=== PATIENT | male | born 1975 | race Caucasian/White ===

== ENCOUNTER 2018-08-27 02:36 | Emergency (ER) | payer SELFPAY ==
[~2018-08-27] VITALS: Ht 170.2 cm; Wt 86.2 kg
[2018-08-27 02:48] VITALS: BP_SYST 131
[2018-08-27 03:20] LABS: BILIRUBIN,URINE NEGATIVE (NEGATIVE); CLARITY/URINE SL HAZY (CLEAR); COLOR,URINE YELLOW (YELLOW); GLUCOSE,URINE NEGATIVE (NEGATIVE); KETONES,URINE NEGATIVE (NEGATIVE); LEUKOCYTE ESTERASE ,URINE 2+ (NEGATIVE); NITRITE, URINE NEGATIVE (NEGATIVE); PH,URINE 6.5 (5.0-8.0); PROTEIN URINE NEGATIVE (NEGATIVE); UROBILINOGEN,URINE 0.2 (0.2-1.0)
[2018-08-27 03:23] LABS: BLOOD, URINE TRACE (NEGATIVE)
[2018-08-27 03:27] LABS: BACTERIA,URINE MODERATE /HPF (None Seen); WBC,URINE 50-80 /HPF (0-3)
[2018-08-27] MEDS ORDERED: DOXYCYCLINE HYCLATE 100 MG CAPSULE PO ONE (05:45)
[2018-08-27] MEDS ORDERED: cefTRIAXone 1 GM VIAL IM ONE (05:45)
[2018-08-27 06:30] VITALS: BP_SYST 124
== END 2018-08-27 06:30 | disposition home or self-care (01) ==
LOC: SED 02:36
DX: N39.0 Urinary tract infection, site not specified (principal); A64 Unspecified sexually transmitted disease
CPT/HCPCS: 81000; 87086; 87491; 87591; 96372; 99283; J0696

== ENCOUNTER 2019-08-20 17:11 | Inpatient (IN) | payer MEDICAID ==
[~2019-08-20] VITALS: Ht 170.2 cm; Wt 95.3 kg
[2019-08-20 17:17] VITALS: BP_SYST 137
[2019-08-20 17:47] LABS: BASOPHILS # (AUTO) 0.1 K/uL (0.0-0.2); BASOPHILS % (AUTO) 0.7 % (0.0-2.0); EOSINOPHILS # (AUTO) 0.2 K/uL (0.0-0.4); EOSINOPHILS % (AUTO) 1.9 % (0.0-4.0); HEMATOCRIT 43.5 % (36-54); HEMOGLOBIN 14.7 g/dL (14.0-18.0); LYMPHOCYTES # (AUTO) 1.9 K/uL (1.0-5.5); LYMPHOCYTES % (AUTO) 23.9 % (20.5-51.5); MEAN CORPUSCULAR HEMOGLOBIN 30 pg (27-31); MEAN CORPUSCULAR HGB CONC 34 % (32-36); MEAN CORPUSCULAR VOLUME 90 fL (79.0-98.0); MONOCYTES # (AUTO) 0.5 K/uL (0.0-1.0); MONOCYTES % (AUTO) 5.6 % (1.7-9.3); NEUTROPHILS # (AUTO) 5.5 K/uL (1.8-7.7); NEUTROPHILS % (AUTO) 67.9 % (40.0-70.0); PLATELET COUNT (AUTO) 291 K/uL (130-430); RED BLOOD CELL COUNT(AUTO) 4.84 MIL/uL (4.2-6.2)
[2019-08-20 17:57] LABS: CALCIUM 8.5 mg/dL (8.4-11.0); CREATININE 1.25 mg/dL (0.55-1.30); POTASSIUM 4.2 mmol/L (3.5-5.1)
[2019-08-20 18:01] LABS: ALBUMIN 3.7 g/dL (3.4-4.8); TOTAL BILIRUBIN 0.2 mg/dL (0.0-1.0)
[2019-08-20] MEDS ORDERED: HYDROcodone/ACETAMIN 7.5-325 MG TAB PO ONE (19:00)
[2019-08-20] MEDS ORDERED: IBUPROFEN 800 MG TABLET PO ONE (19:00)
[2019-08-20] MEDS ORDERED: fentaNYL CITRATE/PF 100 MCG/2 ML AMP IM ONE (20:30)
[2019-08-20] MEDS ORDERED: ONDANSETRON HCL 4 MG/2 ML VIAL IVP PRN (21:45)
[2019-08-20] MEDS ORDERED: HYDROcodone/ACETAMIN 5-325 MG TAB (NORCO/ VICODIN) PO PRN (21:45)
[2019-08-20] MEDS ORDERED: fentaNYL CITRATE/PF 100 MCG/2 ML AMP IVP ONE (21:45)
[2019-08-20] MEDS ORDERED: MORPHINE 2 MG/ML INJ. SYRINGE IVP PRN (21:45)
[2019-08-20] MEDS ORDERED: ACETAMINOPHEN 325 MG TABLET PO PRN (21:45)
[2019-08-20 22:14] LABS: PHOSPHORUS 3.3 mg/dL (2.7-4.5); THYROID STIMULATING HORMONE 0.95 uIu/mL (0.36-3.74)
[2019-08-20 23:20] VITALS: BP_SYST 120
[2019-08-21 07:22] LABS: BASOPHILS # (AUTO) 0.1 K/uL (0.0-0.2); BASOPHILS % (AUTO) 0.9 % (0.0-2.0); EOSINOPHILS # (AUTO) 0.3 K/uL (0.0-0.4); EOSINOPHILS % (AUTO) 4.1 % (0.0-4.0); HEMATOCRIT 40.8 % (36-54); LYMPHOCYTES # (AUTO) 2.3 K/uL (1.0-5.5); LYMPHOCYTES % (AUTO) 31.1 % (20.5-51.5); MEAN CORPUSCULAR HEMOGLOBIN 31 pg (27-31); MEAN CORPUSCULAR HGB CONC 34 % (32-36); MEAN CORPUSCULAR VOLUME 89 fL (79.0-98.0); MONOCYTES # (AUTO) 0.7 K/uL (0.0-1.0); MONOCYTES % (AUTO) 9.6 % (1.7-9.3); NEUTROPHILS % (AUTO) 54.3 % (40.0-70.0); PLATELET COUNT (AUTO) 280 K/uL (130-430); RED BLOOD CELL COUNT(AUTO) 4.58 MIL/uL (4.2-6.2); WHITE BLOOD COUNT (AUTO) 7.4 K/uL (4.8-10.8)
[2019-08-21 07:33] LABS: CALCIUM 8.3 mg/dL (8.4-11.0); CREATININE 1.35 mg/dL (0.55-1.30); POTASSIUM 3.7 mmol/L (3.5-5.1)
[2019-08-21 07:39] VITALS: BP_SYST 119
[2019-08-21] MEDS ORDERED: DOCUSATE SODIUM 100 MG CAPSULE PO SCH (09:00)
[2019-08-21 10:00] VITALS: BP_SYST 119; BP_SYST 123
[2019-08-21 11:23] VITALS: BP_SYST 123
== END 2019-08-21 12:20 | disposition home or self-care (01) | DRG 952 ==
LOC: SED 17:11 → SMU 20:50
PROVIDERS: ADMIT Student in an Organized Health Care Education/Training Program; ATTEND Student in an Organized Health Care Education/Training Program
PROC: 0WQ0XZZ Repair Head, External Approach (ICD-10-PCS; principal; 2019-08-21)
DX: S22.089A Unspecified fracture of T11-T12 vertebra, initial encounter for closed fracture (principal); S32.049A Unspecified fracture of fourth lumbar vertebra, initial encounter for closed fracture; S01.01XA Laceration without foreign body of scalp, initial encounter; S33.5XXA Sprain of ligaments of lumbar spine, initial encounter; E78.2 Mixed hyperlipidemia; S01.81XA Laceration without foreign body of other part of head, initial encounter; F15.10 Other stimulant abuse, uncomplicated; Z60.2 Problems related to living alone; W18.39XA Other fall on same level, initial encounter; Y93.89 Activity, other specified; Y92.89 Other specified places as the place of occurrence of the external cause; Y99.8 Other external cause status; Z71.51 Drug abuse counseling and surveillance of drug abuser
CPT/HCPCS: 36415; 70450-TC; 71045; 72125-TC; 72128; 72131; 80048; 80053; 80061; 82150-TC; 83036; 83605; 83615-TC; 83690-TC; 83735-TC; 83880; 84100-TC; 84443-TC; 84484; 85025; 85610-TC; 85730-TC; 96374; 99285; J3010

== ENCOUNTER 2019-08-30 02:38 | Emergency (ER) | payer MEDICAID ==
[~2019-08-30] VITALS: Ht 170.2 cm; Wt 95.3 kg
[2019-08-30 02:44] VITALS: BP_SYST 121
--- NOTE | 2019-08-30 02:50 | NUR ---
Patient to ER bed 3 to gown for evaluation. Side rails up. Report given to Ghazal BRITO.
--- NOTE | 2019-08-30 02:52 | NUR ---
Patient ambulated with steady gait. Pt is here for suture removal to head. Site is dry, edges are well approximated, and intact. No other injuries/complaints per patient or noted.
--- NOTE | 2019-08-30 02:54 | NUR ---
ER Dr. Warner at bedside examining patient.
--- NOTE | 2019-08-30 03:42 | NUR ---
Patient given written and verbal discharge instructions and verbalizes understanding. ER MD discussed with patient the results and treatment provided. Patient in stable condition. ID arm band removed. NO Rx of given. Patient educated on pain management and to follow up with PMD. Pain Scale 0/10. Opportunity for questions provided and answered. Medication side effect fact sheet provided.
[2019-08-30 03:46] VITALS: BP_SYST 119
== END 2019-08-30 03:46 | disposition home or self-care (01) ==
LOC: SED 02:38
DX: Z48.02 Encounter for removal of sutures (principal)
CPT/HCPCS: 99283

== ENCOUNTER 2019-09-05 12:42 | Emergency (ER) | payer MEDICAID ==
[~2019-09-05] VITALS: Ht 162.6 cm; Wt 74.8 kg
[2019-09-05 13:20] VITALS: BP_SYST 158
--- NOTE | 2019-09-05 13:35 | NUR ---
p-t arrives from home fro a referral to Dr. Bassett. No other c.o at the moment
--- NOTE | 2019-09-05 13:40 | NUR ---
TORRES Cantu at bedside examining patient.
--- NOTE | 2019-09-05 13:45 | NUR ---
Patient given written and verbal discharge instructions and verbalizes understanding. ER MD discussed with patient the results and treatment provided. Patient in stable condition. ID arm band removed. intact and dressing applied, no active bleeding. Patient educated on pain management and to follow up with PMD. Pain Scale 0/10. Referral to Dr. Taylor given Opportunity for questions provided and answered. Medication side effect fact sheet provided.
[2019-09-05 13:54] VITALS: BP_SYST 158
== END 2019-09-05 13:54 | disposition home or self-care (01) ==
LOC: SED 12:42
DX: S01.01XD Laceration without foreign body of scalp, subsequent encounter (principal); V00.131D Fall from skateboard, subsequent encounter
CPT/HCPCS: 99281

== ENCOUNTER 2022-05-20 00:53 | Emergency (ER) | payer OTHER, MEDICAID ==
[~2022-05-20] VITALS: Ht 167.6 cm; Wt 86.2 kg
[2022-05-20 01:32] VITALS: BP_SYST 137
--- NOTE | 2022-05-20 01:35 | NUR ---
Patient triaged and placed in ED room 3. VSS and patient appears in no acute distress at this time. Accompanied by sig other. Report given to DARYL Ramirez and MD notified of need for MSE.
[2022-05-20] MEDS ORDERED: ONDANSETRON 4 MG ODT TAB PO ONE (02:00)
[2022-05-20] MEDS ORDERED: DIPHTH,PERTUSS(ACELL),TET VAC 0.5 ML VIAL (Tdap) I.M. ONE (02:30)
[2022-05-20] MEDS ORDERED: MORPHINE 4 MG INJ. 4 MG/ML VIAL IM ONE (02:30)
[2022-05-20] MEDS ORDERED: BACITRACIN 1 GM OINT TP ONE (03:24)
[2022-05-20] MEDS ORDERED: levETIRAcetam 1,000 MG IV BAG 100 ML IV ONE (03:45)
--- NOTE | 2022-05-20 03:58 | NUR ---
# 20 gauge angiocath placed to . Use of asceptic technique. Opsite placed over site. Blood return noted. Blood for lab drawn from site. Flushed with 10 cc of normal saline. No evidence of infiltration noted. Patient tolerated well.
--- NOTE | 2022-05-20 04:00 | NUR ---
PT IS AA&OX4. NAD. AFEBRILE. WOUND TX RENDERED ON LEFT LATERAL SIDE OF HEAD ABRASION AND LEFT SHOULDER, CLEANSED W/ NS, APPLIED TRIPLE ATB, LEFT AMBRE ABRASION ON HEAD. COVERED W/ BANDAID ON LEFT SHOULDER. SAFE & HAZARD FREE ENVIRONMENT.
[2022-05-20 04:02] LABS: BASOPHILS # (AUTO) 0.3 K/uL (0.0-0.2); BASOPHILS % (AUTO) 2.7 % (0.0-2.0); EOSINOPHILS # (AUTO) 0.2 K/uL (0.0-0.4); HEMOGLOBIN 14.3 g/dL (14.0-18.0); LYMPHOCYTES # (AUTO) 1.5 K/uL (1.0-5.5); LYMPHOCYTES % (AUTO) 12.9 % (20.5-51.5); MEAN CORPUSCULAR HEMOGLOBIN 30 pg (27-31); MEAN CORPUSCULAR HGB CONC 34 % (32-36); MEAN CORPUSCULAR VOLUME 88 fL (79.0-98.0); MONOCYTES # (AUTO) 0.6 K/uL (0.0-1.0); MONOCYTES % (AUTO) 5.3 % (1.7-9.3); NEUTROPHILS # (AUTO) 9.3 K/uL (1.8-7.7); NEUTROPHILS % (AUTO) 77.1 % (40.0-70.0); PLATELET COUNT (AUTO) 288 K/uL (130-430); RED BLOOD CELL COUNT(AUTO) 4.79 MIL/uL (4.2-6.2); RED CELL DISTRIBUTION WIDTH 12.9 % (9.0-15.0)
[2022-05-20 04:17] LABS: ANION GAP 6 (5-15); CALCIUM 8.8 mg/dL (8.4-11.0); CHLORIDE 102 mmol/L (98-107); CREATININE 1.23 mg/dL (0.55-1.30); GLUCOSE 120 mg/dL (70-99); INR 0.9 (0.80-1.20); PROTHROMBIN TIME 9.8 SECS (9.5-12.5); SODIUM SERUM 135 mmol/L (136-145); UREA NITROGEN, BLOOD 18 mg/dL (8-21)
[2022-05-20 04:24] LABS: GFR AFRICAN AMERICAN 81 mL/min (>90)
[2022-05-20 04:30] LABS: ALANINE AMINOTRANSFERASE 35 U/L (12-78); ALBUMIN 3.8 g/dL (3.4-4.8); ASPARTATE AMINOTRANSFERASE 22 U/L (10-37); TOTAL BILIRUBIN 0.2 mg/dL (0.0-1.0)
--- NOTE | 2022-05-20 04:40 | NUR ---
REPORT GIVEN TO DARYL DELGADO [facility] = [phone]
[2022-05-20 05:07] LABS: ALCOHOL, BLOOD < 3 mg/dL (<10)
--- NOTE | 2022-05-20 07:13 | NUR ---
REPORT GIVEN TO DARYL NAIR
--- NOTE | 2022-05-20 07:15 | NUR ---
Assumed care of pt. Pt is in bed resting with no s/s of distress. Pt connected to cardiac nurse practitioner and VSS. Pt is A&Ox4. Cranial nerves intact. Pupils PERRLA. Respirations even and unlabored. Pt states he has mild head pain 3/10 non radiating constant. Pt able to move all extremities eually and equal strength noted as well. No chest pain and no sob. Denies n/v. Swelling is noted on left parietal lobe with an abrasion that is covered with bacitracin. There is also a left shoulder abrasion that is bandaged and intact. Pt aware he will be going to [place] and the eta for transport is at 0830. Bed in lowest position and safety checks in place.
[2022-05-20] MEDS ORDERED: IBUP-1969 PO ×2 (08:10)
[2022-05-20] MEDS ORDERED: NEU300 PO ×2 (08:10)
[2022-05-20] MEDS ORDERED: IBUPROFEN 600 MG TABLET PO ONE (08:15)
[2022-05-20] MEDS ORDERED: GABAPENTIN 100 MG CAPSULE PO ONE (08:15)
--- NOTE | 2022-05-20 08:45 | NUR ---
DR. PRAJAPATI AT BEDSIDE TO ASSESS PT. Addendum: 05/20/22 at 0849 by [email or web address] WRONG PT.
--- NOTE | 2022-05-20 09:16 | NUR ---
[facility] [place] Pt aware and has no c/o. Pt is A&Ox4. VSS. Pupils PERRLA. Respirations even and unlabored. Pt consent to transfer to higher level of care.
[2022-05-20 09:27] VITALS: BP_SYST 124
--- NOTE | 2022-05-20 09:28 | NUR ---
Patient to be transferred to [place]. Is being transferred due to higher level of care. Receiving facility has accepting physician and available space. ER physician has signed transfer form. Patient or responsible libertarian has agreed to transfer and signed form. Patient belongings inventoried and will be sent with patient. Copy of nursing notes, lab reports, EKG, Physicians Orders and X-rays to be sent with patient. Report called to Kelly BRITO at receiving facility. [facility] service has been called for transfer. ETA is 0900.
== END 2022-05-20 09:27 | disposition short-term general hospital (02) ==
LOC: SED 00:53
DX: S06.5X0A Traumatic subdural hemorrhage without loss of consciousness, initial encounter (principal); S86.912A Strain of unspecified muscle(s) and tendon(s) at lower leg level, left leg, initial encounter; S40.212A Abrasion of left shoulder, initial encounter; S00.01XA Abrasion of scalp, initial encounter; R51.9 Headache, unspecified; M79.662 Pain in left lower leg; Z79.899 Other long term (current) drug therapy; Z20.822 Contact with and (suspected) exposure to COVID-19; V28.0XXA Motorcycle driver injured in noncollision transport accident in nontraffic accident, initial encounter; Y93.89 Activity, other specified; Y92.89 Other specified places as the place of occurrence of the external cause; Y99.8 Other external cause status
CPT/HCPCS: 99285; 96365; 70450; 87426; 80053; 85025; 85610; 85730; 36415; 76376; 90715; 96372; 90471; G0482; Q0162; J1953; J2270